=== PATIENT | male | born 1965 | race Caucasian/White ===

== ENCOUNTER 2020-06-26 12:16 | Emergency (ER) | payer OTHER, SELFPAY ==
[2020-06-26 12:40] VITALS: BP 108/67; PULSE 73; RESP 14; TEMP 37.3; O2SAT 98; BMI 23.0
--- NOTE | 2020-06-26 12:46 | HMH.EDUTC ---
[facility] [place]ression: Contact dermatitis Qualifiers: Contact dermatitis type: allergic Contact dermatitis trigger: other trigger Qualified Code(s): L23.89 - Allergic contact dermatitis due to other agents Disposition: Home, Self-Care Condition on Discharge: Good Instructions: DI for Contact Dermatitis Additional Instructions: follow up with pcp if worsen return or be seen in ed Prescriptions: predniSONE [Prednisone 20mg Tab] 20 mg PO BID #10 tab Prescription Printed Triamcinolone Acetonide 15 gm TP BID 5 Days #1 oint...g. Prescription Printed Referrals: Kim Adkins APRN [Primary Care Provider] - Time of Disposition: 12:50 Medical Decision Making - Ti Inquiry Pt receiving controlled substance: No Vital Signs: 06/26/20 12:40 Temperature 99.1 F Temperature Source Oral Pulse Rate [Right Brachial] 73 Respiratory Rate 14 Blood Pressure [Right Arm] 108/67 L Blood Pressure Mean [Right Arm] 80 Blood Pressure Source [Right Arm] Automatic Cuff Blood Pressure Position [Right Arm] Sitting 02 Sat by Pulse Oximetry 98 Oxygen Delivery Method Room Air [facility] [place] - General Chief complaint: [facility] Stated complaint: rash on face Time Seen by Provider: 06/26/20 12:46 Mode of Arrival: Ambulatory Source of Information: Patient Limitations: No Limitations Description of Symptoms (Recalled from Triage Doc. by RN): rash bumps on face, oozing, ithcing; sinus like symptoms HEENT Symptoms (Recalled from RN notes): Yes Resp Symptoms (Recalled from RN notes): Yes Skin Symptoms (Recalled from RN notes): Yes MS Symptoms (Recalled from RN notes): No Functional Status (Recalled from RN notes): n/a - History of Present Illness Provider Complaint: 54 yr old male presents for rash bumps on face, oozing, itching; sinus like symptoms for over one month. pt states same symptoms over 1 month ago - Related Data Home Medications Medication Instructions Recorded Confirmed Ergocalciferol (Vitamin D2) 400 unit PO DAILY 01/30/18 02/01/18 [Vitamin D] Cetirizine HCl [Zyrtec] 10 mg PO DAILY 06/26/20 06/26/20 Previous Rx's Medication Instructions Recorded Triamcinolone Acetonide 15 gm TP BID 5 Days #1 oint...g. 06/26/20 predniSONE [Prednisone 20mg 20 mg PO BID #10 tab 06/26/20 Tab] Allergies Allergy/AdvReac Type Severity Reaction Status Date / Time pseudoephedrine Allergy Intermediate Verified 01/30/18 13:40 [From Sudafed] acetaminophen [From Tylenol] Allergy Verified 01/30/18 13:40 diphenhydramine Allergy Verified 01/30/18 13:40 [From Benadryl] - Worker's Comp Is this a Worker's Comp case?: No [facility] History - Hepatitis A Screen Drug use history?: No High risk sexual behaviors?: No History of sexually transmitted infection?: No Currently employed?: No Childcare worker?: No Do you have indoor plumbing?: Yes Do you have electricity?: Yes Attestation statement:: This patient has been screened for Hepatitis A risk factors. I have reviewed the patient's past medical history: Yes Medical History: Reports:: Hyperlipidemia Denies:: Diabetes Mellitus Type 1, Diabetes Mellitus Type 2, Internal Pacemaker, Lung Disease, Seizures Other Medical History: Denies: Blood Transfusion Reaction Laterality Cases: Bilateral: Other Other Surgeries: No: Pacemaker - Social History Smoking Status: Current some day smoker Tobacco Type: cigarettes # Packs/Day (cigarettes): 1 Alcohol Intake: never Occupational Status: employed Household Members: family Family Hx:: Cancer ROS Obtained: Yes Systems reviewed as appropriate & no additional complaints - Constitutional Constitutional: Reports system reviewed and no additional complaints, except as docu, Denies fever(s) - Eyes Eyes: Reports system reviewed and no additional complaints, except as docu, Denies change in vision - ENT Ears, Nose, Mouth, and Throat: Reports system reviewed and no additional complai
[2020-06-26 12:54] VITALS: BP 108/67; PULSE 73; RESP 14; TEMP 37.3; O2SAT 98
== END 2020-06-26 12:55 | disposition home or self-care (01) ==
PROVIDERS: Emergency Provider Nurse Practitioner Family; PCP Nurse Practitioner Family
DX: L23.89 Allergic contact dermatitis due to other agents (principal); E78.5 Hyperlipidemia, unspecified; F17.210 Nicotine dependence, cigarettes, uncomplicated
CPT/HCPCS: 99202; G0463

== ENCOUNTER 2021-05-13 13:16 | Emergency (ER) | payer OTHER, SELFPAY ==
[2021-05-13 14:58] VITALS: BP 119/69; PULSE 68; RESP 16; TEMP 36.6; O2SAT 96; BMI 23.0
--- NOTE | 2021-05-13 14:58 | XR_ITS ---
FINAL REPORT TECHNIQUE: Chest PA & Lateral CLINICAL HISTORY: pain FINDINGS: 2 views of the chest were performed. The heart size is normal. The mediastinum is within normal limits. There are mild chronic changes in both lungs. There are no pleural effusions. There is no pneumothorax. The bony thorax appears intact. IMPRESSION: No acute cardiopulmonary process. Reviewed, Interpreted and Dictated by Marlon Gerardo MD Transcribed by Emily Masters Authenticated by Marlon Gerardo MD on 05/13/2021 04:36:23 PM [facility]
--- NOTE | 2021-05-13 15:30 | HMH.EDUTC ---
[facility] – [place]position Clinical Impression: Bronchitis Sinusitis Qualifiers: Sinusitis location: unspecified location Chronicity: acute Recurrence: non-recurrent Qualified Code(s): J01.90 - Acute sinusitis, unspecified Disposition: Home, Self-Care Condition on Discharge: Good Instructions: DI for Sinusitis, DI for Acute Bronchitis Additional Instructions: Ill watch for the viral pcr swab results to come back today. I'll call you to discuss the results and adjust anything that needs adjusting. Drink plenty of fluids. Take tylenol or ibuprofen for pain or fever. Take the medications as directed. Follow up with your regular doctor. GO TO THE ER FOR ANY WORSENING SYMPTOMS Prescriptions: methylPREDNISolone [Medrol] 4 mg PO DIRECTED 6 Days #21 packet Transmission Status: Received by [facility] guaiFENesin [Mucinex 600mg tablet] 1 - 2 tab PO BIDP PRN #30 tab PRN Reason: Congestion Transmission Status: Received by [facility] Referrals: Kim Adkins APRN [Primary Care Provider] - Time of Disposition: 17:01 Medical Decision Making - Medical Records Medical records reviewed: No: I reviewed the patient's medical records. - Ti Inquiry Pt receiving controlled substance: No Vital Signs: 05/13/21 14:58 05/13/21 17:10 Temperature 97.8 F 97.8 F Temperature Source Oral Pulse Rate 68 Pulse Rate [Left] 68 Respiratory Rate 16 16 Blood Pressure 119/60 Blood Pressure [Right Arm] 119/69 Blood Pressure Mean [Right Arm] 85 02 Sat by Pulse Oximetry 96 - Lab Data Lab Results 05/13/21 14:59: Chlamy pneumoniae PCR Not detected, Adenovirus (PCR) Not detected, B. pertussis DNA (PCR) Not detected, Coronavirus OC43 (PCR) Detected A, Coronavirus HKU1 (PCR) Not detected, Coronavirus 229E (PCR) Not detected, SARS-CoV-2 (PCR) Not detected, Coronavirus NL63 (PCR) Not detected, Human Metapneumovir PCR Not detected, Influenza A (H1) PCR Not detected, Influ A (H1N1/09) PCR Not detected, Influenza A (H3) PCR Not detected, Influenza Type A (PCR) Not detected, Influenza Type B (PCR) Not detected, M. pneumoniae (PCR) Not detected, Parainfluenza 1 (PCR) Not detected, Parainfluenza 2 (PCR) Not detected, Parainfluenza 3 (PCR) Not detected, Parainfluenza 4 (PCR) Not detected, RSV (PCR) Not detected, Entero/Rhino (PCR) Not detected Orders (Tests/Meds): ED MEDICATIONS Discontinued Medications Generic Name Dose Route Start Last Admin Trade Name Alba PRN Reason Stop Dose Admin Ceftriaxone Sodium 1 gm 05/13/21 16:28 05/13/21 16:39 Ceftriaxone 1gm Vial IM 05/13/21 16:29 1 gm ONCE ONE Administration Lidocaine HCl 0 ml 05/13/21 16:28 05/13/21 16:39 Lidocaine 1% 5ml Pf Vial IM 05/13/21 16:29 2 ml ONCE ONE Administration Methylprednisolone Sodium Succinate 125 mg 05/13/21 16:28 05/13/21 16:39 Methylprednisolone Sod Succ 125mg Vial IM 05/13/21 16:29 125 mg ONCE ONE Administration [facility] [place] HPI - General Stated complaint: chest, head congestion Time Seen by Provider: 05/13/21 16:04 Mode of Arrival: Ambulatory Source of Information: Patient Limitations: No Limitations Description of Symptoms (Recalled from Triage Doc. by RN): pt c/o sneezing, nasal drainage, chest/rib pain, back pain and joint pain. HEENT Symptoms (Recalled from RN notes): Yes Resp Symptoms (Recalled from RN notes): Yes Skin Symptoms (Recalled from RN notes): No MS Symptoms (Recalled from RN notes): Yes Functional Status (Recalled from RN notes): wnl - History of Present Illness Provider Complaint: He c/o sinus congestion for the apst 2 days. - Related Data Home Medications Medication Instructions Recorded Confirmed Ergocalciferol (Vitamin D2) 400 unit PO DAILY 01/30/18 06/26/20 [Vitamin D] Cetirizine HCl [Zyrtec] 10 mg PO DAILY 06/26/20 06/26/20 Previous Rx's Medication Instructions Recorded Triamcinolone Acetonide 15 gm TP BID 5 Days #1 oint...g. 06/26/20 predniSONE
[2021-05-13 17:10] VITALS: BP 119/60; PULSE 68; RESP 16; TEMP 36.6
[2021-05-13 17:15] LABS: Adenovirus,PCR Not Detected (NotDetected); Bordetella Pertussis Not Detected (NotDetected); Chlamydophila Pneumoniae, PCR Not Detected (NotDetected); Coronavirus 19, PCR Not Detected (NotDetected); Coronavirus 229E Not Detected (NotDetected); Coronavirus NL63 Not Detected (NotDetected); Coronovirus HKU1,PCR Not Detected (NotDetected); Human Metapneumovirus Not Detected (NotDetected); Influenza A, PCR Not Detected (NotDetected); Influenza AH1, 2009 Not Detected (NotDetected); Influenza AH1, PCR Not Detected (NotDetected); Influenza AH3,PCR Not Detected (NotDetected); Influenza B, PCR Not Detected (NotDetected); Mycoplasma Pneumoniae, PCR Not Detected (NotDetected); Parainfluenza 1, PCR Not Detected (NotDetected); Parainfluenza 2, PCR Not Detected (NotDetected); Parainfluenza 3, PCR Not Detected (NotDetected); Parainfluenza 4, PCR Not Detected (NotDetected); Respiratory Syncytial Virus Not Detected (NotDetected); Rhinovirus/Enterovirus Not Detected (NotDetected)
[2021-05-13 19:56] LABS: Coronavirus OC43 Detected (NotDetected)
== END 2021-05-13 17:12 | disposition home or self-care (01) ==
PROVIDERS: Emergency Provider Nurse Practitioner Family; PCP Nurse Practitioner Family
DX: J20.9 Acute bronchitis, unspecified (principal); J01.90 Acute sinusitis, unspecified; B34.2 Coronavirus infection, unspecified
CPT/HCPCS: 71046; 87581; 87632; 87798; 99203; C9803; G0463; J0696; U0003; U0005

== ENCOUNTER → 2022-11-27 23:36 | Outpatient (CLI) | payer BC, SELFPAY | PROVIDERS: PCP Family Medicine; Visit Provider Family Medicine | DX: R30.0 Dysuria (principal) | CPT/HCPCS: 87086 ==

== ENCOUNTER 2023-09-24 16:18 | Outpatient (CLI) | payer BC, SELFPAY ==
[2023-09-24 17:15] LABS: Basophils # 0.1 K/mm3 (0-0.2); Basophils % 1.2 % (0.1-2.0); Eosinophils # 0.3 K/mm3 (0.0-0.4); Eosinophils % 5.2 % (0.1-12.0); Hematocrit 51.3 % (42.0-52.0); Hemoglobin 17.1 g/dL (14.1-18.0); Lymphocytes # 1.8 K/mm3 (0.7-4.5); Lymphocytes % 28.5 % (10-50); Mean Corpuscular HGB Conc 33.3 g/dL (31.8-35.4); Mean Corpuscular Hemoglobin 31.5 pg (27.0-31.2); Mean Corpuscular Volume 94.6 fl (80-94); Mean Platelet Volume 9.6 fl (7.4-10.4); Monocytes # 0.3 K/mm3 (0.1-1.0); Monocytes % 5.3 % (1.7-9.3); Neutrophils # 3.8 K/mm3 (1.8-7.8); Neutrophils % 59.7 % (37.0-80.0); Platelet Count 210 K/mm3 (142-424); Red Blood Count 5.42 M/mm3 (4.60-6.20); Red Cell Distribution Width 13.5 % (11.5-17.5); White Blood Count 6.3 K/mm3 (4.8-10.8)
[2023-09-24 17:47] LABS: Erythrocyte Sedimentation Rate 1 mm/hr (0-20)
[2023-09-24 17:53] LABS: Alanine Aminotransferase 44 U/L (12-78); Albumin Level 4.1 g/dl (3.5-5.0); Albumin/Globulin Ratio 1.6 (1.1-1.8); Alkaline Phosphatase 137 U/L (38-126); Anion Gap 11.1 mEq/L (5-15); Aspartate Amino Transferase 31 U/L (17-59); Bilirubin,Total 0.5 mg/dl (0.2-1.3); Blood Urea Nitrogen 16 mg/dl (9-20); Calcium 9.6 mg/dl (8.4-10.2); Carbon Dioxide 25 mmol/L (22.0-30.0); Chloride 110 mmol/L (98-107); Chol/HDL Ratio 6.9 (1-3.5); Cholesterol 194 mg/dl (140-200); Estimated Glomerular Filt Rate 69 ml/min (>60); GFR (African American) 84 ML/MIN (>60); Globulin 2.5 g/dL (1.3-3.2); Glucose 87 mg/dl (74-100); HDL Cholesterol 28 mg/dl (40-60); Potassium 5.1 mmoL/L (3.5-5.1); Sodium 141 mmol/L (136-145); Total Protein,Serum 6.6 g/dl (6.3-8.2); Triglycerides 357 mg/dl (30-150); Uric Acid 5.8 mg/dl (3.5-8.5); VLDL Cholesterol 71 mg/dL (0-40)
[2023-09-24 18:27] LABS: Prostate Specific Ag Screen 1.6 ng/ml (0.0-4.0); Thyroid Stimulating Hormone 2.04 uIU/mL (0.465-4.68)
[2023-09-24 19:32] LABS: Direct LDL Cholesterol 91.48 mg/dL (100-129)
[2023-09-26 13:33] LABS: RA Latex Turbid. <10.0 IU/mL (<14.0)
[2023-09-27 11:29] LABS: Antinuclear Antibodies, IFA Negative (.)
== END 2023-09-24 23:59 | disposition home or self-care (01) ==
LOC: LAB.DROPOF 16:18
PROVIDERS: PCP Family Medicine; Visit Provider Family Medicine
DX: M62.838 Other muscle spasm (principal); M54.2 Cervicalgia; Z13.220 Encounter for screening for lipoid disorders; Z80.42 Family history of malignant neoplasm of prostate
CPT/HCPCS: 80050; 80053; 80061; 84443; 84550; 85025; 85651; 86038; 86431; G0103

== ENCOUNTER 2023-09-24 16:39 | Outpatient (CLI) | payer BC, SELFPAY ==
--- NOTE | 2023-09-24 16:43 | XR_ITS ---
PROCEDURE INFORMATION: Exam: XR Cervical Spine Exam date and time: 09/24/2023 4:46 PM Age: 57 years old Clinical indication: Numbness; Additional info: Pain left shoulder and numbness left fingers TECHNIQUE: Imaging protocol: Radiologic exam of the cervical spine. Views: 2 or 3 views. COMPARISON: CR XR CHEST 2V 05/13/2021 3:03 PM FINDINGS: Bones/joints: No acute fracture. No bone lesions. Normal alignment. Disc spaces are well preserved. Small posterior osteophytes at C3. Soft tissues: No soft tissue masses. IMPRESSION: No acute findings in the cervical spine.
== END 2023-09-24 23:59 | disposition home or self-care (01) ==
LOC: RAD 16:40
PROVIDERS: PCP Family Medicine; Visit Provider Family Medicine
DX: M54.2 Cervicalgia (principal)
CPT/HCPCS: 72040

== ENCOUNTER 2025-02-24 10:50 | Outpatient (CLI) | payer BC, SELFPAY ==
[2025-02-24 17:59] LABS: Hematocrit 49.3 % (42.0-52.0); Hemoglobin 16.2 g/dL (14.1-18.0); Immature Granulocytes % 0.4 %; Mean Corpuscular HGB Conc 32.9 g/dL (31.8-35.4); Mean Corpuscular Hemoglobin 30.9 pg (27.0-31.2); Mean Corpuscular Volume 94.1 fl (80-94); Nucleated Red Blood Cells % 0 %; Platelet Count 240 K/mm3 (142-424); Red Blood Count 5.24 M/mm3 (4.60-6.20); Red Cell Distribution Width-SD 43.2 fL; White Blood Count 7.3 K/mm3 (4.8-10.8)
[2025-02-24 18:29] LABS: Alanine Aminotransferase 31 U/L (12-78); Albumin Level 4.4 g/dl (3.5-5.0); Albumin/Globulin Ratio 1.7 (1.1-1.8); Alkaline Phosphatase 107 U/L (38-126); Anion Gap 18.4 mEq/L (5-15); Aspartate Amino Transferase 26 U/L (17-59); Bilirubin,Total 0.6 mg/dl (0.2-1.3); Blood Urea Nitrogen 19 mg/dl (9-20); Calcium 9.5 mg/dl (8.4-10.2); Carbon Dioxide 25 mmol/L (22.0-30.0); Chloride 104 mmol/L (98-107); Cholesterol 177 mg/dl (140-200); Creatinine,Serum 0.90 mg/dl (0.66-1.25); Estimated Glomerular Filt Rate 87 ml/min (>60); GFR (African American) 105 ML/MIN (>60); Globulin 2.6 g/dL (1.3-3.2); HDL Cholesterol 34 mg/dl (40-60); Potassium 4.4 mmoL/L (3.5-5.1); Sodium 143 mmol/L (136-145); Total Protein,Serum 7.0 g/dl (6.3-8.2); Triglycerides 235 mg/dl (30-150)
[2025-02-24 18:49] LABS: 25-OH Vitamin D, Total 18.1 ng/mL (30-100)
[2025-02-24 19:00] LABS: Thyroid Stimulating Hormone 2.22 uIU/mL (0.465-4.68)
[2025-02-24 19:19] LABS: Vitamin B12 342 pg/mL (239-931)
[2025-02-24 19:21] LABS: Hepatitis C Ab Qual. W/ RFX NEGATIVE (Negative)
[2025-02-24 20:03] LABS: HIV Combo Retest POSITIVE (Negative)
[2025-02-26 06:33] LABS: Hepatitis B Surface Antigen Negative (Negative)
== END 2025-02-24 23:59 ==
LOC: LAB.DROPOF 02-26 10:50
PROVIDERS: PCP Family Medicine; Visit Provider Family Medicine
DX: E78.5 Hyperlipidemia, unspecified (principal); Z12.5 Encounter for screening for malignant neoplasm of prostate; R63.4 Abnormal weight loss; R53.83 Other fatigue; G47.9 Sleep disorder, unspecified; Z11.59 Encounter for screening for other viral diseases; Z11.4 Encounter for screening for human immunodeficiency virus [HIV]
CPT/HCPCS: 80053; 80061; 82306; 82607; 84443; 85025; 86803; 87340; 87389; G0103; G0432

== ENCOUNTER 2025-03-04 12:25 | Outpatient (CLI) | payer BC, SELFPAY ==
[2025-03-04 20:04] LABS: Uric Acid 5.5 mg/dl (3.5-8.5)
--- OUTSIDE RECORDS SUMMARY | 2025-03-05 10:42 | XMS_ITS | Data Portability ---
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 Plan of Treatment Reminders Order Date Submit Date Provider Last Modified By Organization Details Last Modified Time Details Appointments None recorded. Lab urinalysi s panel, auto 2021 022 [facility], [address], [place], [address], 2 15:59:58 urinalysi s panel, auto 2021 022 [facility], [address], [address], [place], [address], 2 10:04:14 urinalysi s, dipstick, auto 2019 020 [facility], [address], [place], [address], 0 15:10:39 urinalysi s, dipstick, auto 2019 020 [facility], [address], [address], [place], [address], 0 14:43:15 urinalysi s, dipstick, auto 2019 020 [facility], [address], [address], [place], [address], 0 11:02:09 Referral None recorded. Procedures None recorded. Surgeries extra corporeal shock wave lithotrip sy (SURG) 2019 020 [facility], [address], [place], [address], 0 09:41:47 Imaging None recorded. Medication Orders nabumeton e 500 mg tablet 2021 022 [id number], [address], [place], [place], [id number], 2 16:00:06 Bactrim DS 800 mg-160 mg tablet 2021 022 [facility] #[id number], [address] [place], [place], [id number], 2 16:00:07 nabumeton e 500 mg tablet 2021 022 [facility] #[id number], [address] [place], [place], [id number], 2 10:04:23 Bactrim DS 800 mg-160 mg tablet 2021 [facility] #[id number], [address] [place], [place], [id number], 2 10:04:25 tamsulosi n 0.4 mg capsule 2019 020 [id number], [address] , [place], [place], [id number], 0 15:10:44 Patient TargetsNo targets recorded. Patient Instructions Encounter Date Encounter Id Patient Instructions Last Modified By Organization Details Last Modified Time 07/16/2019 [id number] kidney stone: care instructions fhadley Not available 07/16/2019 11:02:09 learning about diet for kidney stone prevention fhadley Not available 07/16/2019 11:02:09 08/05/2019 [id number] kidney stone: care instructions fhadley Not available 08/05/2019 14:43:15 learning about diet for kidney stone prevention fhadley Not available 08/05/2019 14:43:15 09/02/2019 [id number] kidney stone: care instructions fhadley Not available 09/02/2019 15:10:39 learning about diet for kidney stone prevention fhadley Not available 09/02/2019 15:10:39 Reason for Referral None Reported. Results Created Date Observation Date Name Description Value Unit Range Abnormal Flag Note LastModifiedBy Organization Detail LastModifiedTime 08/05/19 20 08/05/2019 urina lysis , dipst ick, auto Unknown Analyte Straw Not Available [facility] [address] [place] [address], [address], 08/05/2019 14:24:58 08/05/19 20 08/05/2019 urina lysis , dipst ick, auto Unknown Analyte Clear Not Available [facility] [address], [place], [address], 08/05/2019 14:24:58 08/05/19 20 08/05/2019 urina lysis , dipst ick, auto Unknown Analyte 1.010 Not Available [facility] [address], [place], [address], 08/05/2019 14:24:58 08/05/19 20 08/05/2019 urina lysis , dipst ick, auto Unknown Analyte 1.003 - 1.035 Not Available [facility] [address], [place], [address], 08/05/2019 14:24:58 08/05/19 20 08/05/2019 urina lysis , dipst ick, auto Unknown Analyte 6.5 Not Available [facility] [address] [place] [address], [place], [address], 08/05/2019 14:24:58 08/05/19 20 08/05/2019 urina lysis , dipst ick, auto Unknown Analyte 5.0 - 8.0 Not Available [facility] [address], [place], [address], 08/05/2019 14:24:58 08/05/19 20 08/05/2019 urina lysis , dipst ick, auto Unknown Analyte 500 Renee/ul (++) Not Available [facility] [address], [place], [address], 08/05/2019 14:24:58 08/05/19 20 08/05/2019 urina lysis , dipst ick, auto Unknown Analyte Negati ve Not Available [facility] [address], [place], [address], 08/05/2019 14:24:58 08/05/19 20 08/05/2019 urina lysis , dipst ick, auto Unknown Analyte Negati ve Not Available [facility] [address], [place], [address], 08/05/2019 14:24:58 08/05/19 20 08/05/2019 urina lysis , dipst ick, auto Unknown Analyte Negati ve Not Available [facility] [address], [place], [address], 08/05/2019 14:24:58 08/05/19 20 08/05/2019 urina lysis , dipst ick, auto Unknown Analyte 30 mg/dl (+) Not Available [facility] [address], [place], [address], 08/05/2019 14:24:58 08/05/19 20 08/05/2019 urina lysis , dipst ick, auto Unknown Analyte Negati ve - Trace Not Available [facility] [address], [place], [address], 08/05/2019 14:24:58 08/05/19 20 08/05/2019 urina lysis , dipst ick, auto Unknown Analyte Normal Not Available [facility] [address], [place], [address], 08/05/2019 14:24:58 08/05/19 20 08/05/2019 urina lysis , dipst ick, auto Unknown Analyte Normal Not Available [facility] [address], [place], [address], 08/05/2019 14:24:58 08/05/19 20 08/05/2019 urina lysis , dipst ick, auto Unknown Analyte 15 mg/dl (Sm) Not Available [facility] [address], [place], [address], 08/05/2019 14:24:58 08/05/19 20 08/05/2019 urina lysis , dipst ick, auto Unknown Analyte Negati ve Not Available [facility] [address], [place], [address], 08/05/2019 14:24:58 08/05/19 20 08/05/2019 urina lysis , dipst ick, auto Unknown Analyte Normal Not Available [facility] [address], [place], [address], 08/05/2019 14:24:58 08/05/19 20 08/05/2019 urina lysis , dipst ick, auto Unknown Analyte Normal - 1mg/dl Not Available [facility] [address], [place], [address], 08/05/2019 14:24:58 08/05/19 20 08/05/2019 urina lysis , dipst ick, auto Unknown Analyte Negati ve Not Available [facility] [address], [place], [address], 08/05/2019 14:24:58 08/05/19 20 08/05/2019 urina lysis , dipst ick, auto Unknown Analyte Negati ve Not Available [facility] [address], [place], [address], 08/05/2019 14:24:58 08/05/19 20 08/05/2019 urina lysis , dipst ick, auto Unknown Analyte 250 Edouard/ul Not Available [facility] [address], [place], [address], 08/05/2019 14:24:58 08/05/19 20 08/05/2019 urina lysis , dipst ick, auto Unknown Analyte Negati ve Not Available [facility] [address], [place], [address], 08/05/2019 14:24:58 08/05/19 20 08/05/2019 urina lysis , dipst ick, auto Unknown Analyte Clean Catch Not Available [facility] [address], [place], [address], 08/05/2019 14:24:58 08/05/19 20 08/05/2019 urina lysis , dipst ick, auto Unknown Analyte Automa leigh ann Not Available [facility] [address], [place], [address], 08/05/2019 14:24:58 07/16/19 20 07/16/2019 urina lysis , dipst ick, auto Unknown Analyte Yellow Not Available [facility] [address], [place], [address], 07/16/2019 10:39:00 07/16/19 20 07/16/2019 urina lysis , dipst ick, auto Unknown Analyte Clear Not Available [facility] [address], [place], [address], 07/16/2019 10:39:00 07/16/19 20 07/16/2019 urina lysis , dipst ick, auto Unknown Analyte 1.015 Not Available [facility] [address], [place], [address], 07/16/2019 10:39:00 07/16/19 20 07/16/2019 urina lysis , dipst ick, auto Unknown Analyte 1.003 - 1.035 Not Available [facility] [address] [place] [address] [address], [place], [address], 07/16/2019 10:39:00 07/16/19 20 07/16/2019 urina lysis , dipst ick, auto Unknown Analyte 5.0 Not Available [facility] [address] [place] [address] [address], [place], [address], 07/16/2019 10:39:00 07/16/19 20 07/16/2019 urina lysis , dipst ick, auto Unknown Analyte 5.0 - 8.0 Not Available [facility] [address], [place], [address], 07/16/2019 10:39:00 07/16/19 20 07/16/2019 urina lysis , dipst ick, auto Unknown Analyte Negati ve Not Available [facility] [address], [place], [address], 07/16/2019 10:39:00 07/16/19 20 07/16/2019 urina lysis , dipst ick, auto Unknown Analyte Negati ve Not Available [facility] [address] [place] [address] [address], [place], [address], 07/16/2019 10:39:00 07/16/19 20 07/16/2019 urina lysis , dipst ick, auto Unknown Analyte Negati ve Not Available [facility] [address], [place], [address], 07/16/2019 10:39:00 07/16/19 20 07/16/2019 urina lysis , dipst ick, auto Unknown Analyte Negati ve Not Available [facility] [address], [place], [address], 07/16/2019 10:39:00 07/16/19 20 07/16/2019 urina lysis , dipst ick, auto Unknown Analyte Negtiv e Not Available [facility] [address], [place], [address], 07/16/2019 10:39:00 07/16/19 20 07/16/2019 urina lysis , dipst ick, auto Unknown Analyte Negati ve - Trace Not Available [facility] [address], [place], [address], 07/16/2019 10:39:00 07/16/19 20 07/16/2019 urina lysis , dipst ick, auto Unknown Analyte Normal Not Available [facility] [address], [place], [address], 07/16/2019 10:39:00 07/16/19 20 07/16/2019 urina lysis , dipst ick, auto Unknown Analyte Normal Not Available [facility] [address], [place], [address], 07/16/2019 10:39:00 07/16/19 20 07/16/2019 urina lysis , dipst ick, auto Unknown Analyte Negati ve Not Available [facility] [address], [place], [address], 07/16/2019 10:39:00 07/16/19 20 07/16/2019 urina lysis , dipst ick, auto Unknown Analyte Negati ve Not Available [facility] [address], [place], [address], 07/16/2019 10:39:00 07/16/19 20 07/16/2019 urina lysis , dipst ick, auto Unknown Analyte Normal Not Available [facility] [address], [place], [address], 07/16/2019 10:39:00 07/16/19 20 07/16/2019 urina lysis , dipst ick, auto Unknown Analyte Normal - 1mg/dl Not Available [facility] [address], [place], [address], 07/16/2019 10:39:00 07/16/19 20 07/16/2019 urina lysis , dipst ick, auto Unknown Analyte Negati ve Not Available [facility] [address], [place], [address], 07/16/2019 10:39:00 07/16/19 20 07/16/2019 urina lysis , dipst ick, auto Unknown Analyte Negati ve Not Available [facility] [address], [place], [address], 07/16/2019 10:39:00 07/16/19 20 07/16/2019 urina lysis , dipst ick, auto Unknown Analyte Negati ve Not Available [facility] [address], [place], [address], 07/16/2019 10:39:00 07/16/19 20 07/16/2019 urina lysis , dipst ick, auto Unknown Analyte Negati ve Not Available [facility] [address], [place], [address], 07/16/2019 10:39:00 07/16/19 20 07/16/2019 urina lysis , dipst ick, auto Unknown Analyte Clean Catch Not Available [facility] [address], [place], [address], 07/16/2019 10:39:00 07/16/19 20 07/16/2019 urina lysis , dipst ick, auto Unknown Analyte Automa leigh ann Not Available [facility] [address], [place], [address], 07/16/2019 10:39:00 06/24/19 20 06/24/2019 urina lysis , dipst ick, auto Unknown Analyte Straw Not Available [facility] [address], [place], [address], 06/24/2019 14:22:35 06/24/19 20 06/24/2019 urina lysis , dipst ick, auto Unknown Analyte Hazy Not Available [facility] [address], [place], [address], 06/24/2019 14:22:35 06/24/19 20 06/24/2019 urina lysis , dipst ick, auto Unknown Analyte 1.015 Not Available [facility] [address], [place], [address], 06/24/2019 14:22:35 06/24/19 20 06/24/2019 urina lysis , dipst ick, auto Unknown Analyte 1.003 - 1.035 Not Available [facility] [address], [place], [address], 06/24/2019 14:22:35 06/24/19 20 06/24/2019 urina lysis , dipst ick, auto Unknown Analyte 7.0 Not Available [facility] [address], [place], [address], 06/24/2019 14:22:35 06/24/19 20 06/24/2019 urina lysis , dipst ick, auto Unknown Analyte 5.0 - 8.0 Not Available [facility] [address], [place], [address], 06/24/2019 14:22:35 06/24/19 20 06/24/2019 urina lysis , dipst ick, auto Unknown Analyte 500 Renee/ul (++) Not Available [facility] [address], [place], [address], 06/24/2019 14:22:35 06/24/19 20 06/24/2019 urina lysis , dipst ick, auto Unknown Analyte Negati ve Not Available [facility] [address], [place], [address], 06/24/2019 14:22:35 06/24/19 20 06/24/2019 urina lysis , dipst ick, auto Unknown Analyte Negati ve Not Available [facility] [address], [place], [address], 06/24/2019 14:22:35 06/24/19 20 06/24/2019 urina lysis , dipst ick, auto Unknown Analyte Negati ve Not Available [facility] [address], [place], [address], 06/24/2019 14:22:35 06/24/19 20 06/24/2019 urina lysis , dipst ick, auto Unknown Analyte 30 mg/dl (+) Not Available [facility] [address], [place], [address], 06/24/2019 14:22:35 06/24/19 20 06/24/2019 urina lysis , dipst ick, auto Unknown Analyte Negati ve - Trace Not Available [facility] [address], [place], [address], 06/24/2019 14:22:35 06/24/19 20 06/24/2019 urina lysis , dipst ick, auto Unknown Analyte Normal Not Available [facility] [address], [place], [address], 06/24/2019 14:22:35 06/24/19 20 06/24/2019 urina lysis , dipst ick, auto Unknown Analyte Normal Not Available [facility] [address], [place], [address], 06/24/2019 14:22:35 06/24/19 20 06/24/2019 urina lysis , dipst ick, auto Unknown Analyte 15 mg/dl (Sm) Not Available [facility] [address], [place], [address], 06/24/2019 14:22:35 06/24/19 20 06/24/2019 urina lysis , dipst ick, auto Unknown Analyte Negati ve Not Available [facility] [address], [place], [address], 06/24/2019 14:22:35 06/24/19 20 06/24/2019 urina lysis , dipst ick, auto Unknown Analyte 1 mg/dl Not Available [facility] [address], [place], [address], 06/24/2019 14:22:35 06/24/19 20 06/24/2019 urina lysis , dipst ick, auto Unknown Analyte Normal - 1mg/dl Not Available [facility] [address], [place], [address], 06/24/2019 14:22:35 06/24/19 20 06/24/2019 urina lysis , dipst ick, auto Unknown Analyte 1 mg/dl (+) Not Available [facility] [address], [place], [address], 06/24/2019 14:22:35 06/24/19 20 06/24/2019 urina lysis , dipst ick, auto Unknown Analyte Negati ve Not Available [facility] [address], [place], [address], 06/24/2019 14:22:35 06/24/19 20 06/24/2019 urina lysis , dipst ick, auto Unknown Analyte 250 Edouard/ul Not Available [facility] [address] [place] [address] [address], [place], [address], 06/24/2019 14:22:35 06/24/19 20 06/24/2019 urina lysis , dipst ick, auto Unknown Analyte Negati ve Not Available [facility] [address], [place], [address], 06/24/2019 14:22:35 06/24/19 20 06/24/2019 urina lysis , dipst ick, auto Unknown Analyte Clean Catch Not Available [facility] [address], [place], [address], 06/24/2019 14:22:35 06/24/19 20 06/24/2019 urina lysis , dipst ick, auto Unknown Analyte Automa leigh ann Not Available [facility] [address], [place], [address], 06/24/2019 14:22:35 06/18/19 20 06/18/2019 urina lysis , dipst ick, auto Unknown Analyte Yellow Not Available [facility] [address] [place] [address] [address], [place], [address], 06/18/2019 11:50:42 06/18/19 20 06/18/2019 urina lysis , dipst ick, auto Unknown Analyte Clear Not Available [facility] [address], [place], [address], 06/18/2019 11:50:42 06/18/19 20 06/18/2019 urina lysis , dipst ick, auto Unknown Analyte 1.015 Not Available [facility] [address], [place], [address], 06/18/2019 11:50:42 06/18/19 20 06/18/2019 urina lysis , dipst ick, auto Unknown Analyte 1.003 - 1.035 Not Available [facility] [address], [place], [address], 06/18/2019 11:50:42 06/18/19 20 06/18/2019 urina lysis , dipst ick, auto Unknown Analyte 5.0 Not Available [facility] [address], [place], [address], 06/18/2019 11:50:42 06/18/19 20 06/18/2019 urina lysis , dipst ick, auto Unknown Analyte 5.0 - 8.0 Not Available [facility] [address] [place] [address], [address], 06/18/2019 11:50:42 06/18/19 20 06/18/2019 urina lysis , dipst ick, auto Unknown Analyte Negati ve Not Available [facility] [address], [place], [address], 06/18/2019 11:50:42 06/18/19 20 06/18/2019 urina lysis , dipst ick, auto Unknown Analyte Negati ve Not Available [facility] [address] [place] [address], [address], 06/18/2019 11:50:42 06/18/19 20 06/18/2019 urina lysis , dipst ick, auto Unknown Analyte Negati ve Not Available [facility] [address], [place], [address], 06/18/2019 11:50:42 06/18/19 20 06/18/2019 urina lysis , dipst ick, auto Unknown Analyte Negati ve Not Available [facility] [address], [place], [address], 06/18/2019 11:50:42 06/18/19 20 06/18/2019 urina lysis , dipst ick, auto Unknown Analyte Negtiv e Not Available [facility] [address], [place], [address], 06/18/2019 11:50:42 06/18/19 20 06/18/2019 urina lysis , dipst ick, auto Unknown Analyte Negati ve - Trace Not Available [facility] [address] [place] [address], [address], 06/18/2019 11:50:42 06/18/19 20 06/18/2019 urina lysis , dipst ick, auto Unknown Analyte Normal Not Available [facility] [address], [place], [address], 06/18/2019 11:50:42 06/18/19 20 06/18/2019 urina lysis , dipst ick, auto Unknown Analyte Normal Not Available [facility] [address], [place], [address], 06/18/2019 11:50:42 06/18/19 20 06/18/2019 urina lysis , dipst ick, auto Unknown Analyte Negati ve Not Available [facility] [address], [place], [address], 06/18/2019 11:50:42 06/18/19 20 06/18/2019 urina lysis , dipst ick, auto Unknown Analyte Negati ve Not Available [facility] [address], [place], [address], 06/18/2019 11:50:42 06/18/19 20 06/18/2019 urina lysis , dipst ick, auto Unknown Analyte Normal Not Available [facility] With [address], [place], [address], 06/18/2019 11:50:42 06/18/19 20 06/18/2019 urina lysis , dipst ick, auto Unknown Analyte Normal - 1mg/dl Not Available [facility] With [address] [address], [place], [address], 06/18/2019 11:50:42 06/18/19 20 06/18/2019 urina lysis , dipst ick, auto Unknown Analyte Negati ve Not Available [facility] [address] [place] [address], [place], [address], 06/18/2019 11:50:42 06/18/19 20 06/18/2019 urina lysis , dipst ick, auto Unknown Analyte Negati ve Not Available [facility] [address] [place] [address], [place], [address], 06/18/2019 11:50:42 06/18/19 20 06/18/2019 urina lysis , dipst ick, auto Unknown Analyte Negati ve Not Available [facility] [address] [place] [address], [address], 06/18/2019 11:50:42 06/18/19 20 06/18/2019 urina lysis , dipst ick, auto Unknown Analyte Negati ve Not Available [facility] [address] [place] [address], [address], 06/18/2019 11:50:42 06/18/19 20 06/18/2019 urina lysis , dipst ick, auto Unknown Analyte Clean Catch Not Available [facility] [address] [place] [address], [address], 06/18/2019 11:50:42 06/18/19 20 06/18/2019 urina lysis , dipst ick, auto Unknown Analyte Automa leigh ann Not Available [facility] [address] [place] [address], [address], 06/18/2019 11:50:42 06/18/19 20 06/22/2019 kidne y stone oz sis nidus Not Observ ed normal See Note 1 Not Available [facility] [address] [facility], [place], [address], 06/22/2019 16:28:43 06/18/19 20 06/22/2019 kidne y stone oz sis composition SEE BELOW normal Calci um Oxala te Monoh ydrat e (Whew ellit e) 95% Carbo guillermo Apati te (Dahl lite) 5% See Note 1 Not Available [facility] [address] [place], [address], 06/22/2019 16:28:43 06/18/19 20 06/22/2019 kidne y stone oz sis weight 0.008 g normal Note 1 This test was devel oped and its oz tical perfo rmanc e bessy cteri stics have been deter mined by [facility]. It has not been clear ed or appro beatriz by the FDA. This assay has been valid ated pursu ant to the CLIA regul ation s and is used for clini ernie purpo ses. TEST PERFO RMED AT: [facility] [address] [place] [address] Aleksandr GUERRA,PHD Not Available [facility] [place], [address], 06/22/2019 16:28:43 06/24/19 20 06/24/2019 cultu re, urine results Sourc e: CCUR Colle cted: 06/23 14:23 Site: Recei beatriz : 06/23 19:31 URINE SCREE N(CUL TURE) FINAL 06/25 17:52 06/25 No growt h day 2. Not Available [facility] [address] [place] [address], [address], 06/26/2019 17:52:45 09/02/19 20 09/02/2019 urina lysis , dipst ick, auto Unknown Analyte Yellow Not Available [facility] [address], [place], [address], 09/02/2019 14:57:52 09/02/19 20 09/02/2019 urina lysis , dipst ick, auto Unknown Analyte Clear Not Available [facility] [address], [place], [address], 09/02/2019 14:57:52 09/02/19 20 09/02/2019 urina lysis , dipst ick, auto Unknown Analyte 1.015 Not Available [facility] [address], [place], [address], 09/02/2019 14:57:52 09/02/19 20 09/02/2019 urina lysis , dipst ick, auto Unknown Analyte 1.003 - 1.035 Not Available [facility] [address], [place], [address], 09/02/2019 14:57:52 09/02/19 20 09/02/2019 urina lysis , dipst ick, auto Unknown Analyte 6.0 Not Available [facility] [address], [place], [address], 09/02/2019 14:57:52 09/02/19 20 09/02/2019 urina lysis , dipst ick, auto Unknown Analyte 5.0 - 8.0 Not Available [facility] [address], [place], [address], 09/02/2019 14:57:52 09/02/19 20 09/02/2019 urina lysis , dipst ick, auto Unknown Analyte Negati ve Not Available [facility] [address], [place], [address], 09/02/2019 14:57:52 09/02/19 20 09/02/2019 urina lysis , dipst ick, auto Unknown Analyte Negati ve Not Available [facility] [address], [place], [address], 09/02/2019 14:57:52 09/02/19 20 09/02/2019 urina lysis , dipst ick, auto Unknown Analyte Negati ve Not Available [facility] [address], [place], [address], 09/02/2019 14:57:52 09/02/19 20 09/02/2019 urina lysis , dipst ick, auto Unknown Analyte Negati ve Not Available [facility] [address], [place], [address], 09/02/2019 14:57:52 09/02/19 20 09/02/2019 urina lysis , dipst ick, auto Unknown Analyte Negtiv e Not Available [facility] [address], [place], [address], 09/02/2019 14:57:52 09/02/19 20 09/02/2019 urina lysis , dipst ick, auto Unknown Analyte Negati ve - Trace Not Available [facility] [address], [place], [address], 09/02/2019 14:57:52 09/02/19 20 09/02/2019 urina lysis , dipst ick, auto Unknown Analyte Normal Not Available [facility] [address], [place], [address], 09/02/2019 14:57:52 09/02/19 20 09/02/2019 urina lysis , dipst ick, auto Unknown Analyte Normal Not Available [facility] [address], [place], [address], 09/02/2019 14:57:52 09/02/19 20 09/02/2019 urina lysis , dipst ick, auto Unknown Analyte Negati ve Not Available [facility] [address], [place], [address], 09/02/2019 14:57:52 09/02/19 20 09/02/2019 urina lysis , dipst ick, auto Unknown Analyte Negati ve Not Available [facility] [address], [place], [address], 09/02/2019 14:57:52 09/02/19 20 09/02/2019 urina lysis , dipst ick, auto Unknown Analyte Normal Not Available [facility] [address], [place], [address], 09/02/2019 14:57:52 09/02/19 20 09/02/2019 urina lysis , dipst ick, auto Unknown Analyte Normal - 1mg/dl Not Available [facility] [address], [place], [address], 09/02/2019 14:57:52 09/02/19 20 09/02/2019 urina lysis , dipst ick, auto Unknown Analyte Negati ve Not Available [facility] [address], [place], [address], 09/02/2019 14:57:52 09/02/19 20 09/02/2019 urina lysis , dipst ick, auto Unknown Analyte Negati ve Not Available [facility] [address], [place], [address], 09/02/2019 14:57:52 09/02/19 20 09/02/2019 urina lysis , dipst ick, auto Unknown Analyte Negati ve Not Available [facility] [address], [place], [address], 09/02/2019 14:57:52 09/02/19 20 09/02/2019 urina lysis , dipst ick, auto Unknown Analyte Negati ve Not Available [facility] [address], [place], [address], 09/02/2019 14:57:52 09/02/19 20 09/02/2019 urina lysis , dipst ick, auto Unknown Analyte Clean Catch Not Available [facility] [address], [place], [address], 09/02/2019 14:57:52 09/02/19 20 09/02/2019 urina lysis , dipst ick, auto Unknown Analyte Automa leigh ann Not Available [facility] [address], [place], [address], 09/02/2019 14:57:52 05/04/19 22 05/04/2021 urina lysis panel , auto Unknown Analyte Clean Catch Not Available [facility] [address], [place], [address], 05/04/2021 09:37:09 05/04/19 22 05/04/2021 urina lysis panel , auto Unknown Analyte Yellow Not Available [facility] [address], [place], [address], 05/04/2021 09:37:09 05/04/19 22 05/04/2021 urina lysis panel , auto Unknown Analyte Clear Not Available [facility] [address], [place], [address], 05/04/2021 09:37:09 05/04/19 22 05/04/2021 urina lysis panel , auto Unknown Analyte 1.025 Not Available [facility] [address], [place], [address], 05/04/2021 09:37:09 05/04/19 22 05/04/2021 urina lysis panel , auto Unknown Analyte 1.003- 1.035 Not Available [facility] [address], [place], [address], 05/04/2021 09:37:09 05/04/19 22 05/04/2021 urina lysis panel , auto Unknown Analyte 5.0 Not Available [facility] [address], [place], [address], 05/04/2021 09:37:09 05/04/19 22 05/04/2021 urina lysis panel , auto Unknown Analyte 5.0-8. 0 Not Available [facility] [address], [place], [address], 05/04/2021 09:37:09 05/04/19 22 05/04/2021 urina lysis panel , auto Unknown Analyte Negati ve Not Available [facility] [address], [place], [address], 05/04/2021 09:37:09 05/04/19 22 05/04/2021 urina lysis panel , auto Unknown Analyte Negati ve Not Available [facility] [address], [place], [address], 05/04/2021 09:37:09 05/04/19 22 05/04/2021 urina lysis panel , auto Unknown Analyte Negati ve Not Available [facility] [address], [place], [address], 05/04/2021 09:37:09 05/04/19 22 05/04/2021 urina lysis panel , auto Unknown Analyte Negati ve Not Available [facility] [address], [place], [address], 05/04/2021 09:37:09 05/04/19 22 05/04/2021 urina lysis panel , auto Unknown Analyte Negati ve Not Available [facility] [address], [place], [address], 05/04/2021 09:37:09 05/04/19 22 05/04/2021 urina lysis panel , auto Unknown Analyte Negati ve Not Available [facility] [address] [place] [address] [address], [place], [address], 05/04/2021 09:37:09 05/04/19 22 05/04/2021 urina lysis panel , auto Unknown Analyte Normal Not Available [facility] [address], [place], [address], 05/04/2021 09:37:09 05/04/19 22 05/04/2021 urina lysis panel , auto Unknown Analyte Normal Not Available [facility] [address], [place], [address], 05/04/2021 09:37:09 05/04/19 22 05/04/2021 urina lysis panel , auto Unknown Analyte Negati ve Not Available [facility] [address], [place], [address], 05/04/2021 09:37:09 05/04/19 22 05/04/2021 urina lysis panel , auto Unknown Analyte Negati ve Not Available [facility] [address], [place], [address], 05/04/2021 09:37:09 05/04/19 22 05/04/2021 urina lysis panel , auto Unknown Analyte Normal Not Available [facility] [address], [place], [address], 05/04/2021 09:37:09 05/04/19 22 05/04/2021 urina lysis panel , auto Unknown Analyte Normal 1 mg/dl Not Available [facility] [address] [place] [address] [address], [place], [address], 05/04/2021 09:37:09 05/04/19 22 05/04/2021 urina lysis panel , auto Unknown Analyte Negati ve Not Available [facility] [address], [place], [address], 05/04/2021 09:37:09 05/04/19 22 05/04/2021 urina lysis panel , auto Unknown Analyte Negati ve Not Available [facility] [address], [place], [address], 05/04/2021 09:37:09 05/04/19 22 05/04/2021 urina lysis panel , auto Unknown Analyte Negati ve Not Available [facility] [address], [place], [address], 05/04/2021 09:37:09 05/04/19 22 05/04/2021 urina lysis panel , auto Unknown Analyte Negati ve Not Available [facility] [address], [place], [address], 05/04/2021 09:37:09 05/27/19 22 05/26/2021 urina lysis panel , auto Unknown Analyte Clean Catch Not Available [facility] [address], [place], [address], 05/26/2021 15:34:46 05/27/19 22 05/26/2021 urina lysis panel , auto Unknown Analyte Yellow Not Available [facility] [address] [place] [address] [address], [place], [address], 05/26/2021 15:34:46 05/27/19 22 05/26/2021 urina lysis panel , auto Unknown Analyte Clear Not Available [facility] [address], [place], [address], 05/26/2021 15:34:46 05/27/19 22 05/26/2021 urina lysis panel , auto Unknown Analyte 1.010 Not Available [facility] [address], [place], [address], 05/26/2021 15:34:46 05/27/19 22 05/26/2021 urina lysis panel , auto Unknown Analyte 1.003- 1.035 Not Available [facility] [address], [place], [address], 05/26/2021 15:34:46 05/27/19 22 05/26/2021 urina lysis panel , auto Unknown Analyte 5.0 Not Available [facility] [address] [place] [address] [address], [place], [address], 05/26/2021 15:34:46 05/27/19 22 05/26/2021 urina lysis panel , auto Unknown Analyte 5.0-8. 0 Not Available [facility] [address], [place], [address], 05/26/2021 15:34:46 05/27/19 22 05/26/2021 urina lysis panel , auto Unknown Analyte Negati ve Not Available [facility] [address], [place], [address], 05/26/2021 15:34:46 05/27/19 22 05/26/2021 urina lysis panel , auto Unknown Analyte Negati ve Not Available [facility] [address], [place], [address], 05/26/2021 15:34:46 05/27/19 22 05/26/2021 urina lysis panel , auto Unknown Analyte Negati ve Not Available [facility] [address], [place], [address], 05/26/2021 15:34:46 05/27/19 22 05/26/2021 urina lysis panel , auto Unknown Analyte Negati ve Not Available [facility] [address] [place] [address] [address], [place], [address], 05/26/2021 15:34:46 05/27/19 22 05/26/2021 urina lysis panel , auto Unknown Analyte Negati ve Not Available [facility] [address] [place] [address] [address], [place], [address], 05/26/2021 15:34:46 05/27/19 22 05/26/2021 urina lysis panel , auto Unknown Analyte Negati ve Not Available [facility] [address], [place], [address], 05/26/2021 15:34:46 05/27/19 22 05/26/2021 urina lysis panel , auto Unknown Analyte Normal Not Available [facility] [address], [place], [address], 05/26/2021 15:34:46 05/27/19 22 05/26/2021 urina lysis panel , auto Unknown Analyte Normal Not Available [facility] [address], [place], [address], 05/26/2021 15:34:46 05/27/19 22 05/26/2021 urina lysis panel , auto Unknown Analyte Negati ve Not Available [facility] [address], [place], [address], 05/26/2021 15:34:46 05/27/19 22 05/26/2021 urina lysis panel , auto Unknown Analyte Negati ve Not Available [facility] [address], [place], [address], 05/26/2021 15:34:46 05/27/19 22 05/26/2021 urina lysis panel , auto Unknown Analyte Normal Not Available [facility] [address], [place], [address], 05/26/2021 15:34:46 05/27/19 22 05/26/2021 urina lysis panel , auto Unknown Analyte Normal 1 mg/dl Not Available [facility] [address], [place], [address], 05/26/2021 15:34:46 05/27/19 22 05/26/2021 urina lysis panel , auto Unknown Analyte Negati ve Not Available [facility] [address], [place], [address], 05/26/2021 15:34:46 05/27/19 22 05/26/2021 urina lysis panel , auto Unknown Analyte Negati ve Not Available [facility] [address], [place], [address], 05/26/2021 15:34:46 05/27/19 22 05/26/2021 urina lysis panel , auto Unknown Analyte Negati ve Not Available [facility] [address] [facility] [address], [place], [address], 05/26/2021 15:34:46 05/27/19 22 05/26/2021 urina lysis panel , auto Unknown Analyte Negati ve Not Available [facility] [address], [place], [address], 05/26/2021 15:34:46 06/18/19 20 06/16/2019 CT, abdom en + pelvi s, w/o contr ast No observ ation record ed. [facility] (Radiology) [address] , [place], [address], 06/18/2019 12:52:34 07/16/19 20 07/16/2019 XR, abdom en, 1 view No observ ation record ed. [facility] (Main) [address] [facility] , [place], [address], 07/16/2019 15:38:19 09/02/19 20 09/02/2019 XR, abdom en, 1 view No observ ation record ed. [facility] Not Available 2019 09:48:23 Result Notes None recorded. Procedures Surgical History Date Name Laterality Status Provider Name and Address Organization Details Recorded Time 0 Kidney Stone Removal completed Murelene Toby [facility] 06/24/2019 14:22:09 Hernia Repair completed Ruthie Hogue [facility] 06/18/2019 11:49:24 operation on nasal septum completed Ruthie Hogue [facility] 06/18/2019 11:49:38 Imaging Results None recorded. Procedure Notes None recorded. Medical Equipment None Reported. Allergies Allergen ID Allergen Name Allergen Category Reaction Reaction Severity Criticality Documentation Date Start Date Code Code System Note Provider Name and Address Organization Details Recorded Time 379693 Tylenol medicatio n Not available Not available Not available 06/18/2019 3 RxNorm Ruthie gramajo null, [facility] 0 11:46:45 [id number] Benadryl medicatio n Not available Not available Not available 06/18/2019 7 RxNorm Ruthie gramajo null, [facility] 0 11:46:53 Medications Name Sig Start Date Stop Date Status Note LastModified by Organization Details LastModified Time ketorolac 10 mg tablet Take 1 tablet every 6 hours by oral route. 07/15 completed Not Available Not Available Not Available tamsulosin 0.4 mg capsule Take 1 capsule every day by oral route. 2019 active Not Available Not Available Not Avai lable Cipro 500 mg tablet Take 1 tablet every 12 hours by oral route. 07/15 completed Not Available Not Available Not Available Dilaudid 4 mg tablet Take 1 tablet every 4 hours by oral route. 07/15 completed Not Available Not Available Not Available Ditropan XL 10 mg tablet,exten ded release Take 1 tablet every day by oral route. 07/15 completed Not Available Not Available Not Available nabumetone 500 mg tablet Take 1 tablet twice a day by oral route. 2021 active Not Available Not Available Not Avai lable Bactrim DS 800 mg-160 mg tablet Take 1 tablet every 12 hours by oral route. 2021 active Not Available Not Available Not Avai lable Zofran 07/15 completed Not Available Not Available Not Available Naprosyn 07/15 completed Not Available Not Available Not Available Flomax 07/15 completed Not Available Not Available Not Available tramadol 07/15 completed Not Available Not Available Not Available Macrodantin 07/15 completed Not Available Not Available Not Available Vitamin D active Not Available Not Yun ilable Not Available Toradol 07/15 completed Not Available Not Available Not Available Vitals Date Recorded Body height Body mass index (BMI) Body weight Provider Name and Address Organization Details Last Updated DateTime 05/04/2021 180.34 cm 23 kg/m2 28589.74 g Yeny Lozoyarobinson [facility] 05/04/2021 09:36:44 Date Recorded Body height Body mass index (BMI) Body weight Provider Name and Address Organization Details Last Updated DateTime 05/26/2021 180.34 cm 23 kg/m2 24966.74 g Ruthie Hogue [facility] 05/26/2021 15:34:23 Date Recorded Body height Body mass index (BMI) Body weight Provider Name and Address Organization Details Last Updated DateTime 07/16/2019 180.34 cm 23 kg/m2 22628.74 noemi Yeny Mckenna [facility] 07/16/2019 10:38:14 Date Recorded Body height Body mass index (BMI) Body weight Provider Name and Address Organization Details Last Updated DateTime 08/05/2019 180.34 cm 23 kg/m2 77848.74 noemi Norma Bret [facility] 08/05/2019 14:24:28 Date Recorded Body height Body mass index (BMI) Body weight Provider Name and Address Organization Details Last Updated DateTime 09/02/2019 180.34 cm 23 kg/m2 76964.74 noemi Norma Queen [facility] 09/02/2019 14:57:36 Social History Question Answer Notes LastModified by Organizat ion Details LastModified Time Tobacco Smoking Status Current Every Day Smoker Ruthie Hogue [facility] 06/18/2019 11:48:58 How Much Tobacco Do You Chew? None Information not available 06/18/2019 Marital Status Informat ion not available 06/18/2019 How Much Tobacco Do You Smoke? 1 PPD Information not available 06/18/2019 Sex: Unknown Functional Status Question Answer Note LastModified by Organization D etails LastModified Time What is your level of alcohol consumption? None Information not available 06/18/2019 Mental Status None recorded. Family History Relationship Description Onset Age of this Age Resolved Age Notes LastModified by Organization Details LastModified Time Paternal Grandfather Malignant neoplasm of prostate kamran Not available 03/2019 11:48:41 Medical History Condition Response Kidney Stones Y Past Encounters Encounter ID Performer Location Encounter Start Date Encounter Closed Date Diagnosis/Indication Diagnosis SNOMED-CT Code Diagnosis ICD10 Code Diagnosis IMO Codes Diagnosis Note [id number] WARD DILLON MD [facility] [address] [place], [place] [address] 06/18/2019 11:32:34 06/18/2019 12:18:16 Kidney stone 19459089 N20.0 Ureteric stone 93102645 N20.1 [id number] WARD DILLON MD SURGERY SCHEDULE [address] [id number] 06/18/2019 12:31:53 06/18/2019 12:32:23 Ureteric stone 98186215 N20.1 [id number] WARD DILLON MD [facility] [address] [place] [address] [id number] 06/24/2019 14:06:34 06/24/2019 14:41:27 Urinary tract infectious disease 57842841 N39.0 Ureteric stone 08751416 N20.1 Kidney stone 75759748 N2 0.0 [id number] WARD DILLON MD [facility] [address] [place] [address] [id number] 07/16/2019 09:40:40 07/16/2019 11:08:52 Kidney stone 03304991 N20.0 [id number] WARD DILLON MD [facility] [address] [place] [address] RD,[place] [address] 08/05/2019 14:06:27 08/05/2019 14:42:47 Kidney stone 04709759 N20.0 [id number] WARD DILLON MD [facility] [address] [place] [address] RD,[address] [id number] 09/02/2019 14:00:58 09/02/2019 15:05:43 Kidney stone 83097957 N20.0 Benign pro static hyperplasia with outflow obstruction 881657030 N40.1 [id number] WARD DILLON MD [facility] [address] [place] [address] [address] 05/04/2021 09:20:43 05/04/2021 10:01:12 Epididymitis 80099876 N45.1 [id number] WARD DILLON MD [facility] [address] [place] [address] 05/26/2021 14:41:02 05/26/2021 15:57:40 Epididymitis 52411223 N45.1 Health Concerns Section Related Observation LastModified by Organization Detai ls LastModified Time None Recorded Concern Status LastModified by Organization Details LastModified Time None Recorded Advance Directives Directive None Recorded Payers Insurance Date Sequence Insurance Name Policy Number Policy Cash Covered Member ID Cash Member ID Guarantor Name 06/07/2021 1 [employer] ([employer]) Zena Salcido [id number] Gurmeet Boucher Omari Notes Date Note Type Note Provider Name and Address Organization Details Recorded Time 07/16/2019 text/html is doing quite well following the ureteroscopy with stone removal. He is voiding with a good stream not have any back or abdominal pain. KUB shows bilateral renal stones. He would like to proceed with ESWL to eradicate the stone. He does not want to do another. Like he just WARD DILLON MD [address] [place] [address] [place], [address], [facility] 07/16/2019 11:02:23 08/05/2019 text/html he is back following the bilateral ESWL. Stent is removed today. He is voiding without difficulty. There is no hematuria WARD DILLON MD [address] [place] [address], [phone], [facility] 08/05/2019 14:43:29 09/02/2019 text/html he is back following bilateral ESWL. He is not have any back or abdominal pain. KUB shows no residual stone fragments. He does have some voiding difficulties. He has nocturia 2 times at night. There is hesitancy. There is no urgency or incontinence. He says it is difficult to get a good night sleep to the problem WARD DILLON MD [address] [place] [address] [place], [address], [facility] 09/02/2019 15:11:31 05/04/2021 text/html in February he developed a small scrotal abscess. He this drained spontaneously. Several weeks ago he started having some left testicular pain with pain radiating up to the left groin. He was given Cipro and this seemed to be helping problem medical doctor rash to the Cipro. There is no back or flank pain. He is voiding without difficulty. He didn't follow-up. He [place], [address], [facility] 05/04/2021 10:07:05 05/26/2021 text/html he is feeling much better. He is now having some very mild left testicular discomfort. The abdominal pain is completely resolved. He is voiding with a good stream and emptying his bladder easily. We will renew the medication for 10 more days WARD DILLON MD [facility] [place], [address], [facility] 05/26/2021 16:01:55
--- OUTSIDE RECORDS SUMMARY | 2025-03-05 10:42 | XMS_ITS | Clinical Summary ---
Author Organization [facility] Address [address] [place] [address] Care Team Providers Care Manufactured Buildings Supervisor Name Role Phone Marty Hernandez MD Primary Care Provider [phone] Allergies Active Allergy Reactions Criticality Noted Date Comments Acetaminophen Swelling 07/31/2019 Itchy eyes Diphenhydramine Hcl Swelling 07/31/2019 Itchy eyes Medications oxyCODONE-aceta minophen (PERCOCET) 5-325 MG per tablet Take 1 tablet by mouth Every 4 (Four) Hours As Needed for pain. 25 tablet 08/01/2019 Active tamsulosin (FLOMAX) 0.4 MG capsule 24 hr capsule Take 1 capsule by mouth Daily. 7 capsule 08/01/2019 4:00 PM EDT 08/01/2019 Active ciprofloxacin (CIPRO) 500 MG tablet Take 1 tablet by mouth 2 (Two) Times a Day. 14 tablet 08/01/2019 4:00 PM EDT 08/01/2019 Active HYDROmorphone (DILAUDID) 4 MG tablet Take 1 tablet by mouth Every 4 (Four) Hours As Needed for pain 25 tablet 08/01/2019 4:00 PM EDT 08/01/2019 Active Social History Tobacco Use Types Packs/Day Years Used Date Smoking Tobacco: Every Day Cigarettes Smokeless Tobacco: Never Alcohol Use Standard Drinks/Week Comments Not Currently 0 (1 standard drink = 0.6 oz pur e alcohol) Abuse Screen Answer Date Recorded Unsafe at Home or Work/School Not on file Feels Threatened by Someone? Not on file 02/2023 Does Anyone Keep You from Co ntacting Others or Doint Things Outside the Home? Not on file 12/28/2022 Physical Sign of Abuse Present Not on file 1 Housing Stability Answer Date Recorded Current Living Arrangements Not on file 12/17 Potentially Unsafe Housing Conditions Not on evelyn e 12/28/2022 Family and Community Support Answer Alex e Recorded Help with Day-to-Day Activities Not on file 12/28/2022 Lonely or Isolated Not on file 12/28/2022 Employment Answer Date Recorded Do you want help finding or keeping work or a cecelia b? Not on file 12/28/2022 Disabilities Answer Date Recorded Concentrating, Remembering, or Making Decisions Difficulty Not on file 12/28/2022 Doing Errands Independently Difficulty Not on fi le 12/28/2022 Education Answer Date Recorded Help with school or training? Not on file Preferred Language Not on file 12/28/2022 Sex and Gender Information Value Date Recorded Sex Assigned at Not on file Legal Sex Male 3:29 PM EDT Gender Identity Not on file Sexual Orientation Not on file Last Filed Vital Signs Vital Sign Reading Time Taken Comments Blood Pressure 97/61 08/01/2019 1:45 PM EDT Pulse 84 08/01/2019 1:45 PM EDT Temperature 36.4 C (97.5 F) 08/01/2019 12:15 PM EDT Respiratory Rate 18 08/01/2019 1:45 PM EDT Oxygen Saturation 93% 08/01/2019 1:45 PM EDT Inhaled Oxygen Concentration - - Weight 74.8 kg (165 lb) 08/01/2019 9:55 AM EDT Height 180.3 cm (5' 11 ) 08/01/2019 9:55 AM EDT Body Mass Index 23.01 08/01/2019 9:55 AM EDT Plan of Treatment Health Maintenance Due Date Last Done Comments TDAP/TD VACCINES (1 - Tdap) 1985 COLOGUARD 10/12/2011 COLON CANCER SCREENING 5 YEAR SIGMOIDOSCOPY 10/12/2011 COLONOSCOPY 10/12/2011 COLORECTAL CANCER SCREENING 10/12/2011 CT COLONOGRAPHY 10/12/2011 FECAL OCCULT BLOOD TEST 10/12/2011 FIT Testing (1 year) 10/12/2011 Pneumococcal Vaccine 50+ (1 of 1 - PCV) 2016 ZOSTER VACCINE (1 of 2) 2016 ANNUAL PHYSICAL 07/29/2019 HEPATITIS C SCREENING 07/29/2019 INFLUENZA VACCINE 10/17/2024 Medical Devices Implanted Type Area Astronomy Teacher Device Identifier Shelf Expiration Date Model / Serial / Lot Stnt Percuflx No Gw 4.8x26 - [id number] Implanted:Qty: 1 on 08/01/2019 by Ky Karimi MD at [facility] [employer] [id number] 04/30/2022 [id number] / / [id number] Insurance [employer] Care Teams Manufactured Buildings Supervisor Relationship Specialty Start Date End Date Marty Hernandez MD PCP - General Family Medicine 07/29/19
--- OUTSIDE RECORDS SUMMARY | 2025-03-05 10:42 | XMS_ITS | Clinical Summary ---
Author Organization Healthcare Address [address] [id number] Care Team Providers Care Manager Installation Name Role Phone Unavailable Primary Care Provider Unavailabl e Social History Tobacco Use Types Packs/Day Years Used Date Smoking Tobacco: Never Assessed Sex and Gender Information Value Date Recorded Sex Assigned at Not on file Legal Sex Male 8:20 PM EDT Gender Identity Not on file Sexual Orientation Not on file Plan of Treatment Health Maintenance Due Date Last Done Comments [facility]-Depression Screening 1966 [facility]-Infant/Child/Adol SDOH Screenings 1966 [facility]- SDOH Screenings 1984 [facility]-Adult SDOH Screenings 1984 [facility]-DTaP,Tdap,and Td Vaccine s (1 - Tdap) 1985 [facility]-Hepatitis B Vaccines (1 of 3 - 19+ 3-dose series) 1985 CT Colonography 10/12/2011 Colonoscopy 10/12/2011 FIT-DNA 10/12/2011 FIT 10/12/2011 FOBT 10/12/2011 Sigmoidoscopy 10/12/2011 [facility]-Colorectal Cancer Screening 10/12/2011 [facility]-Pneumococcal Vaccine: 50 + Years (1 of 1 - PCV) 2016 [facility]-Zoster Vaccines (1 of 2) 2016 [id number] Vaccine (1 - 20 - season) 2024 [facility]-Influenza Vaccine (#1) 2024 HPV Vaccines (No Doses Required) Completed [facility]-HIB Vaccines Aged Out No longer e ligible based on patient's age to complete this topic [facility]-Hepatitis A Vaccines Aged Out No longer eligible based on patient's age to complete this topic [facility]-IPV Vaccines Aged Out No longer e ligible based on patient's age to complete this topic [facility]-Rotavirus Vaccines Aged Out No lo nger eligible based on patient's age to complete this topic
[2025-03-06 12:26] LABS: RA Latex Turbid. <10.0 IU/mL (<14.0)
[2025-03-06 18:16] LABS: Antinuclear Antibodies, IFA Negative (.)
== END 2025-03-04 23:59 | disposition home or self-care (01) ==
LOC: LAB.DROPOF 03-05 10:11
PROVIDERS: PCP Family Medicine; Visit Provider Family Medicine
DX: R79.89 Other specified abnormal findings of blood chemistry (principal); R53.83 Other fatigue
CPT/HCPCS: 84550; 85651; 86038; 86225; 86235; 86431